=== PATIENT | female | born 1970 | race Asian ===

== ENCOUNTER 2016-11-02 11:49 | Outpatient (CLI) | payer OTHER ==
[~2016-11-02 11:49] MED LIST: AMLO5TAB PO; ATENOLOL100 MG PO; CARDIZEM90 MG PO; CLONIDINE0.2 MG PO; DIOVAN HCT320 MG/25 PO; GLIP10TA55 PO; HYZAAR1 TA2 PO; LIPITOR10 MG PO; METFORMIN ER1000 MG PO
== END 2016-11-02 19:52 | disposition home or self-care (01) ==
LOC: RAD 11:49
DX: R76.11 Nonspecific reaction to tuberculin skin test without active tuberculosis (principal)

== ENCOUNTER 2017-07-10 09:44 | Emergency (ER) | payer BC ==
[~2017-07-10] VITALS: Ht 162.6 cm; Wt 98.0 kg
[2017-07-10 09:54] VITALS: BP 155/95; TEMP 97.6
== END 2017-07-10 10:14 | disposition home or self-care (01) ==
LOC: ED 09:44
DX: J02.9 Acute pharyngitis, unspecified (principal)
CPT/HCPCS: 99281

== ENCOUNTER 2017-08-13 14:40 | Emergency (ER) | payer BC ==
[~2017-08-13] VITALS: Ht 162.6 cm; Wt 98.0 kg
[2017-08-13 14:55] VITALS: TEMP 98.5
[2017-08-13] MEDS ORDERED: DIOVAN HCT320 MG/25 PO (14:55)
[2017-08-13 15:49] VITALS: BP 145/58
== END 2017-08-13 15:50 | disposition home or self-care (01) ==
LOC: ED 14:40
PROC: 2W3MX1Z Immobilization of Left Lower Extremity using Splint (ICD-10-PCS; principal; 2017-08-13)
DX: S83.92XA Sprain of unspecified site of left knee, initial encounter (principal); W17.2XXA Fall into hole, initial encounter; Y93.64 Activity, baseball; Y92.830 Public park as the place of occurrence of the external cause
CPT/HCPCS: 99283; L1830

== ENCOUNTER 2018-04-07 08:41 | Outpatient (CLI) | payer BC | END 2018-04-07 19:11 | disposition home or self-care (01) | LOC: US 08:41 | DX: I83.893 Varicose veins of bilateral lower extremities with other complications (principal) ==

== ENCOUNTER 2018-09-14 15:44 | Outpatient (CLI) | payer BC | END 2018-09-14 19:37 | disposition home or self-care (01) | LOC: CT 15:44 | DX: N20.2 Calculus of kidney with calculus of ureter (principal) ==

== ENCOUNTER 2018-11-21 00:06 | Emergency (ER) | payer OTHER ==
[~2018-11-21] VITALS: Ht 162.6 cm; Wt 98.9 kg
[2018-11-21] MEDS ORDERED: INSU100I2 SC (00:19)
[2018-11-21 00:42] LABS: PLATELET COUNT 338 K/uL (152-353)
[2018-11-21 00:50] LABS: POTASSIUM 3.9 mmol/L (3.6-5.2)
[2018-11-21 03:26] VITALS: BP 134/86; TEMP 98.1
== END 2018-11-21 03:39 | disposition home or self-care (01) ==
LOC: ED 00:06
PROVIDERS: Internal Medicine
DX: R10.9 Unspecified abdominal pain (principal); M47.9 Spondylosis, unspecified; R81 Glycosuria; E11.9 Type 2 diabetes mellitus without complications
CPT/HCPCS: 36415; 80053; 81000; 85027; 93005; 96374; 99284; J1885

== ENCOUNTER 2018-11-22 16:33 | Outpatient (CLI) | payer OTHER ==
[~2018-11-22 16:33] MED LIST changes: +INSU100I2 SC
== END 2018-11-22 22:09 | disposition home or self-care (01) ==
LOC: CT 16:33
DX: R10.9 Unspecified abdominal pain (principal); E11.9 Type 2 diabetes mellitus without complications; I10 Essential (primary) hypertension

== ENCOUNTER 2018-11-22 16:56 | Emergency (ER) | payer OTHER ==
[~2018-11-22] VITALS: Ht 162.6 cm; Wt 98.9 kg
[2018-11-22 19:25] VITALS: BP 175/108; TEMP 98.3
== END 2018-11-22 19:25 | disposition home or self-care (01) ==
LOC: ED 16:56
DX: M47.896 Other spondylosis, lumbar region (principal)
CPT/HCPCS: 99283

== ENCOUNTER 2018-11-23 09:43 | Outpatient (CLI) | payer OTHER | END 2018-11-23 19:46 | disposition home or self-care (01) | LOC: MRI 09:43 | DX: M54.17 Radiculopathy, lumbosacral region (principal); M54.14 Radiculopathy, thoracic region ==

== ENCOUNTER 2018-12-05 14:28 | Outpatient (CLI) | payer OTHER | END 2018-12-05 20:32 | disposition home or self-care (01) | LOC: US 14:28 | DX: N83.209 Unspecified ovarian cyst, unspecified side (principal) ==

== ENCOUNTER 2020-03-13 10:25 | Outpatient (CLI) | payer BC | END 2020-03-13 19:02 | disposition home or self-care (01) | LOC: US 10:25 | DX: R10.31 Right lower quadrant pain (principal) ==

== ENCOUNTER 2020-12-05 12:10 | Outpatient (CLI) | payer OTHER | END 2020-12-05 19:36 | disposition home or self-care (01) | LOC: RAD 12:10 | PROVIDERS: ATTEND Physician Assistant | DX: M25.531 Pain in right wrist (principal) ==

== ENCOUNTER 2021-03-10 12:52 | Outpatient (CLI) | payer OTHER | END 2021-03-10 22:04 | disposition home or self-care (01) | LOC: RAD 12:52 | PROVIDERS: ATTEND Nurse Practitioner Primary Care | DX: M79.671 Pain in right foot (principal) ==

== ENCOUNTER 2021-05-27 10:01 | Outpatient (CLI) | payer OTHER | END 2021-05-27 23:31 | disposition home or self-care (01) | LOC: MRI 10:01 | PROVIDERS: ATTEND Podiatrist Foot & Ankle Surgery | DX: S90.31XD Contusion of right foot, subsequent encounter (principal) ==

== ENCOUNTER 2022-01-07 15:44 | Outpatient (CLI) | payer OTHER ==
[2022-01-07 16:36] LABS: PLATELET COUNT 315 K/uL (152-353)
[2022-01-07 16:59] LABS: POTASSIUM 3.5 mmol/L (3.6-5.2)
== END 2022-01-07 21:10 | disposition home or self-care (01) ==
LOC: RAD 15:44
PROVIDERS: ATTEND Nurse Practitioner Family
DX: R10.9 Unspecified abdominal pain (principal); M54.59 Other low back pain
CPT/HCPCS: 36415; 80053; 82550; 82553; 85027

== ENCOUNTER 2022-01-08 09:32 | Outpatient (CLI) | payer OTHER | END 2022-01-08 21:40 | disposition home or self-care (01) | LOC: RAD 09:32 | PROVIDERS: ATTEND Nurse Practitioner Family | DX: M54.59 Other low back pain (principal) ==

== ENCOUNTER 2022-06-16 12:54 | Outpatient (CLI) | payer BC ==
[~2022-06-16] VITALS: Ht 162.6 cm; Wt 100.7 kg
[2022-06-16 14:12] VITALS: BP 127/78; TEMP 99.3
[2022-06-16 14:50] VITALS: BP 119/84; TEMP 99
[2022-06-16 15:05] VITALS: BP 121/85; TEMP 99.5
[2022-06-16 15:35] VITALS: BP 123/84; TEMP 98.9
== END 2022-06-16 23:00 | disposition home or self-care (01) ==
LOC: INF 12:54
PROVIDERS: ATTEND Family Medicine
DX: Z23 Encounter for immunization (principal); U07.1 COVID-19
CPT/HCPCS: 96374; Q0222

== ENCOUNTER 2023-01-26 13:45 | Observation (INO) | payer BC ==
[~2023-01-26] VITALS: Ht 162.6 cm; Wt 97.7 kg
[2023-01-26 18:43] VITALS: BP 114/65; TEMP 98.3; Ht 162.6 cm; Wt 97.7 kg
[2023-01-26] MEDS ORDERED: AMLODIPINE BESYLATE PO (19:32)
[2023-01-26] MEDS ORDERED: ATEN50TA36 PO (19:32)
[2023-01-26] MEDS ORDERED: BASAGLAR K100 UNIT/M SC (19:34)
[2023-01-26] MEDS ORDERED: GABA100C2 PO (19:35)
[2023-01-26] MEDS ORDERED: GLIP10TA55 PO (19:37)
[2023-01-26] MEDS ORDERED: MONT10TA PO (19:38)
[2023-01-26] MEDS ORDERED: MOUNJARO SC (19:43)
[2023-01-26] MEDS ORDERED: BENICAR HCT1 TA2 PO (19:44)
[2023-01-26] MEDS ORDERED: ONDANSETRON4 M2 PO (19:45)
[2023-01-26 20:00] VITALS: BP 105/74; TEMP 98.1
[2023-01-27 00:05] VITALS: BP 116/69; TEMP 97.6
[2023-01-27 04:00] VITALS: BP 105/64; TEMP 97.1
[2023-01-27 05:15] LABS: PLATELET COUNT 328 K/uL (152-353)
[2023-01-27 05:41] LABS: POTASSIUM 3.7 mmol/L (3.6-5.2)
[2023-01-27 07:49] VITALS: BP 105/63; TEMP 97.8
== END 2023-01-27 10:44 | disposition home or self-care (01) ==
LOC: MED/SURG 13:45
PROVIDERS: ADMIT Internal Medicine; ATTEND Internal Medicine
DX: K52.89 Other specified noninfective gastroenteritis and colitis (principal); E86.9 Volume depletion, unspecified; I10 Essential (primary) hypertension; I95.89 Other hypotension; E11.65 Type 2 diabetes mellitus with hyperglycemia
CPT/HCPCS: 36415; 80053; 82150; 82948; 83690; 83735; 85027; 96361; 96365; 96375; 99220; 99221; G0378; G0379; J2405; J3475

== ENCOUNTER 2023-11-28 12:34 | Outpatient (CLI) | payer BC ==
[~2023-11-28 12:34] MED LIST changes: +AMLODIPINE BESYLATE PO; +ATEN50TA36 PO; +BASAGLAR K100 UNIT/M SC; +BENICAR HCT1 TA2 PO; +GABA100C2 PO; +MONT10TA PO; +MOUNJARO SC; +ONDANSETRON4 M2 PO
== END 2023-11-28 19:43 | disposition home or self-care (01) ==
LOC: RAD 12:34
PROVIDERS: ATTEND Nurse Practitioner Family
DX: M54.17 Radiculopathy, lumbosacral region (principal)